=== PATIENT | female | born 1955 | race Hispanic/Latino ===

== ENCOUNTER 2022-10-26 08:23 | Emergency (ER) | payer MEDICARE, OTHER ==
[2022-10-26] MEDS ORDERED: fentaNYL 50 mcg/mL 1 mL Vial ONE (08:49)
[2022-10-26 08:57] LABS: #Eosinphils 0.3 10x3/uL (0.0-0.5); #Monocytes 0.9 10x3/uL (0.0-1.1); #Neutrophils 6.5 10x3/uL (1.5-8.4); %Basophils 0.4 % (0.0-2.0); %Eosinophils 3.4 % (0.0-6.0); %Lymphocytes 15.6 % (18.0-47.0); %Monocytes 10.1 % (0.0-10.0); %Neutrophils 70.4 % (40.0-75.0); Hematocrit 28.1 % (34.9-44.5); Hemoglobin 9.4 g/dL (12.0-15.5); Mean Corpuscular HGB CONC 33.5 g/dL (32.0-36.0); Mean Corpuscular Hemoglobin 31.1 pg (27.0-33.0); Mean Platelet Volume 9.4 fl (7.4-10.4); Platelet Count 231 10x3/uL (150-450); RBC Distribution Width 13.9 % (11.5-14.5); Red Blood Cell (RBC) Count 3.02 10x6/uL (3.90-5.03); White Blood Cell (WBC) Count 9.2 10x3/uL (3.5-10.5)
[2022-10-26 09:07] LABS: D-Dimer Test 0.91 mg/L FEU (0.19-0.50); PTT 27.4 sec (22.0-33.0); Prothrombin Time 10.7 sec (9.5-12.1)
[2022-10-26 09:10] LABS: ALT (SGPT) 45 U/L (8-55); AST (SGOT) 68 U/L (5-34); Albumin 3.5 g/dL (3.4-4.8); Alkaline Phosphatase 105 U/L (40-110); Anion Gap 14 mmol/L (10-20); BUN (Urea Nitrogen) 19 mg/dL (9.8-20.1); Bilirubin, Total 0.3 mg/dL (0.2-1.2); Calc. Creatinine Clearance 0 mL/min (70-130); Calcium 8.5 mg/dL (7.8-10.44); Carbon Dioxide 20 mmol/L (23-31); Chloride 108 mmol/L (98-107); Estimated GFR 64; Globulin 2.7 g/dL (2.4-3.5); Glucose 104 mg/dL (80-115); Magnesium 2.1 mg/dL (1.6-2.6); Potassium 3.8 mmol/L (3.5-5.1); Protein, Total 6.2 g/dL (5.8-8.1); Sodium 138 mmol/L (136-145)
[2022-10-26 09:15] LABS: Troponin I Less than 0.010 ng/mL (< 0.028)
[2022-10-26 11:32] LABS: Troponin I Less than 0.010 ng/mL (< 0.028)
[2022-10-26] MEDS ORDERED: Iopamidol 370 76% 100 ML VIAL ONE (14:16)
== END 2022-10-26 12:08 | disposition home or self-care (01) ==
LOC: CSHERS 08:23
DX: R07.89 Other chest pain (principal); E11.22 Type 2 diabetes mellitus with diabetic chronic kidney disease; I13.0 Hypertensive heart and chronic kidney disease with heart failure and stage 1 through stage 4 chronic kidney disease, or unspecified chronic kidney disease; N18.9 Chronic kidney disease, unspecified; I25.10 Atherosclerotic heart disease of native coronary artery without angina pectoris; F17.210 Nicotine dependence, cigarettes, uncomplicated; Z79.899 Other long term (current) drug therapy; Z79.82 Long term (current) use of aspirin
CPT/HCPCS: 71045; 71275; 80053; 83735; 84484 ×2; 85025; 85379; 85610; 85730; 93005; 96374; 99285; J3010; Q9967

== ENCOUNTER → 2023-07-10 | Emergency (ER) | payer OTHER ==
[~2023-07-10] MED LIST: LevoFLOXacin D5W 500 mg (100 mL) BAG ONE
[2023-07-10 22:21] LABS: #Basophils 0.07 10x3/uL (0.0-0.2); #Eosinphils 0.95 10x3/uL (0.0-0.5); #Monocytes 0.79 10x3/uL (0.0-1.1); %Eosinophils 13.6 % (0.0-6.0); %Lymphocytes 33.6 % (18.0-47.0); %Monocytes 11.4 % (0.0-10.0); %Neutrophils 40.3 % (40.0-75.0); Hematocrit 28.3 % (34.9-44.5); Hemoglobin 9.6 g/dL (12.0-15.5); Mean Corpuscular HGB CONC 33.9 g/dL (32.0-36.0); Mean Corpuscular Hemoglobin 31.8 pg (27.0-33.0); Mean Corpuscular Volume 93.7 fl (81.6-98.3); Mean Platelet Volume 9.3 fl (7.4-10.4); Platelet Count 302 10x3/uL (150-450); RBC Distribution Width 14.7 % (11.5-14.5); Red Blood Cell (RBC) Count 3.02 10x6/uL (3.90-5.03)
[2023-07-10 22:25] LABS: Bilirubin Neg (Negative); Blood, Urine 250 (Negative); Clarity Cloudy (Clear); Glucose, Urine (Dipstick) 250 mg/dL (Negative); Ketone, Urine Negative (Negative); Leukocyte 500 (Negative); Nitrite Negative (Negative); Protein, Urine (Dipstick) 100 mg/dl (Neg-Trace); Urobilinogen Normal mg/dL (Less than 2)
[2023-07-10 22:31] LABS: Bacteria/HPF 2+ HPF (None Seen); CAUTI Indications for Culture Dysuria,urgency,freq; Squamous Epithelial 0-3 HPF (0-3); Urine Culture Reflex Yes Yes; WBC/HPF Greater than 50 HPF (0-3)
[2023-07-10 22:33] LABS: ALT (SGPT) 32 U/L (8-55); AST (SGOT) 31 U/L (5-34); Albumin 2.7 g/dL (3.4-4.8); Alkaline Phosphatase 131 U/L (40-110); Anion Gap 13 mmol/L (10-20); BUN (Urea Nitrogen) 23 mg/dL (9.8-20.1); Bilirubin, Total 0.2 mg/dL (0.2-1.2); Calc. Creatinine Clearance 0 mL/min (70-130); Calcium 9.2 mg/dL (7.8-10.44); Carbon Dioxide 20 mmol/L (23-31); Chloride 111 mmol/L (98-107); Estimated GFR 67; Globulin 4.3 g/dL (2.4-3.5); Glucose 120 mg/dL (80-115); Potassium 4.3 mmol/L (3.5-5.1); Sodium 140 mmol/L (136-145)
== END ==
LOC: CSHERS 21:39
DX: N39.0 Urinary tract infection, site not specified (principal); I50.9 Heart failure, unspecified; E11.22 Type 2 diabetes mellitus with diabetic chronic kidney disease; I13.0 Hypertensive heart and chronic kidney disease with heart failure and stage 1 through stage 4 chronic kidney disease, or unspecified chronic kidney disease; N18.9 Chronic kidney disease, unspecified; I25.10 Atherosclerotic heart disease of native coronary artery without angina pectoris; F17.210 Nicotine dependence, cigarettes, uncomplicated
CPT/HCPCS: 51701; 80053; 81001; 85025; 87086; 99283; J1956

== ENCOUNTER 2023-12-20 08:32 | Observation (INO) | payer MEDICARE, OTHER ==
[2023-12-20 09:10] LABS: Bilirubin Neg (Negative); Blood, Urine 250 (Negative); Clarity Cloudy (Clear); Glucose, Urine (Dipstick) Normal (Negative); Ketone, Urine Negative (Negative); Leukocyte 500 (Negative); Nitrite Positive (Negative); Protein, Urine (Dipstick) 500 mg/dl (Neg-Trace); Urobilinogen Normal mg/dL (Less than 2)
[2023-12-20 09:31] LABS: Bacteria/HPF 4+ HPF (None Seen); CAUTI Indications for Culture Alt mental st,lethar; RBC/HPF Greater than 50 HPF (0-3); WBC/HPF Greater Than 50 HPF (0-3)
[2023-12-20 09:32] LABS: Urine Culture Reflex Yes Yes
[2023-12-20 09:47] LABS: #Basophils 0.06 10x3/uL (0.0-0.2); #Eosinophils 0.32 10x3/uL (0.0-0.5); #Monocytes 0.33 10x3/uL (0.0-1.1); #Neutrophils 5.73 10x3/uL (1.5-8.4); %Basophils 0.8 % (0.0-2.0); %Eosinophils 4.2 % (0.0-6.0); %Lymphocytes 15.9 % (18.0-47.0); %Monocytes 4.3 % (0.0-10.0); %Neutrophils 74.7 % (40.0-75.0); Hematocrit 37.1 % (34.9-44.5); Hemoglobin 12.4 g/dL (12.0-15.5); Mean Corpuscular HGB CONC 33.4 g/dL (32.0-36.0); Mean Corpuscular Hemoglobin 32.4 pg (27.0-33.0); Mean Corpuscular Volume 96.9 fL (81.6-98.3); Platelet Count 252 10x3/uL (150-450); Red Blood Cell (RBC) Count 3.83 10x6/uL (3.90-5.03); White Blood Cell (WBC) Count 7.7 10x3/uL (3.5-10.5)
[2023-12-20 10:04] LABS: Acetaminophen Less than 10 mcg/mL (Less than 10); Alcohol Less than 10.0 mg/dL (Less than 10); Lipase 58 U/L (8-78); Salicylate Less than 8.0 mg/dL (Less than 8.0)
[2023-12-20 10:05] LABS: ALT (SGPT) 74 U/L (8-55); AST (SGOT) 49 U/L (5-34); Albumin 3.2 g/dL (3.4-4.8); Alkaline Phosphatase 124 U/L (40-110); Anion Gap 13 mmol/L (10-20); BUN (Urea Nitrogen) 28 mg/dL (9.8-20.1); Bilirubin, Total 0.3 mg/dL (0.2-1.2); Calc. Creatinine Clearance 0 mL/min (70-130); Calcium 9.1 mg/dL (7.8-10.44); Carbon Dioxide 17 mmol/L (23-31); Chloride 115 mmol/L (98-107); Estimated GFR 65; Globulin 3.5 g/dL (2.4-3.5); Glucose 152 mg/dL (80-115); Potassium 5.2 mmol/L (3.5-5.1); Protein, Total 6.7 g/dL (5.8-8.1); Sodium 140 mmol/L (136-145)
[2023-12-20 10:14] LABS: Troponin I Less than 0.010 ng/mL (< 0.028)
[2023-12-20] MEDS ORDERED: LevoFLOXacin 750 mg/D5W 150 ml Premix Bag ONE (10:25)
[2023-12-20] MEDS ORDERED: Phenazopyridine HCl 95 MG TAB ONE (10:38)
[2023-12-20 10:58] LABS: Amphetamine Not Detected (NotDetected); Barbiturates Screen Not Detected (NotDetected); Benzodiazepine Screen Not Detected (NotDetected); Cocaine Metabolite Screen Not Detected (NotDetected); Methadone Not Detected (NotDetected); Methamphetamine Not Detected (NotDetected); Opiate Screen Detected (NotDetected); Oxycodone Screen Not Detected (NotDetected); Phencyclidine (PCP) Not Detected (NotDetected); THC/Cannabinoid Screen Not Detected (NotDetected); Tricyclic Screen Not Detected (NotDetected)
[2023-12-20] MEDS ORDERED: Ondansetron ODT 4 MG TAB PO PRN (11:14)
[2023-12-20] MEDS ORDERED: Insulin Lispro 100 UNIT/ML 10 ML VIAL SC PRN (11:33)
[2023-12-20] MEDS ORDERED: Dextrose 50% Abboject 50 ML SYRINGE SLOW IVP PRN (11:33)
[2023-12-20] MEDS ORDERED: Glucagon 1 MG/ML KIT IM PRN (11:33)
[2023-12-20] MEDS ORDERED: Dextrose 5% in Water 1,000 ML IV PRN (11:33)
[2023-12-20 12:08] VITALS: BMI 17.6
[2023-12-20] MEDS: Acetaminophen 325 MG TAB PO PRN (13:16)
[2023-12-20] MEDS: Phenazopyridine HCl 95 MG TAB PO SCH (13:16)
[2023-12-20] MEDS: cefTRIAXone\\ROCEPHIN 1 GM in Sodium Chloride 0.9% 100 ML IVPB SCH (13:20)
[2023-12-20] MEDS ORDERED: FLU (Fluad Triv) TS24-25 (65UP)/MF59C/PF 45 MCG/0.5 ML Syringe IM ONE (14:45)
[2023-12-20] MEDS: Morphine 2 MG/ML VIAL SLOW IVP PRN (14:55)
[2023-12-20] MEDS ORDERED: Loperamide HCl 2 MG CAP PO PRN (15:21)
[2023-12-20] MEDS ORDERED: hydrOXYzine 25 MG TAB PO PRN (15:21)
[2023-12-20] MEDS ORDERED: Diclofenac 1% 50 GM TOPICAL GEL TP PRN (15:21)
[2023-12-20] MEDS: Carvedilol 25 MG TAB PO SCH (21:46)
[2023-12-20] MEDS: Famotidine 20 MG TAB PO SCH (21:46)
[2023-12-20] MEDS: rOPINIRole HCl 0.25 MG TAB PO SCH (21:46)
[2023-12-20] MEDS: Losartan 50 MG TAB PO SCH (21:47)
[2023-12-20] MEDS: levETIRAcetam 500 MG TAB PO SCH (21:47)
[2023-12-20] MEDS: Amlodipine 5 MG TAB PO SCH (21:47)
[2023-12-20] MEDS: Baclofen 10 MG TAB PO SCH (21:48)
[2023-12-20] MEDS: Potassium Chloride 10 MEQ TAB PO SCH (21:48)
[2023-12-20] MEDS: DULoxetine 30 MG CAP PO SCH (21:48)
[2023-12-20] MEDS: Isosorbide Dinitrate 20 MG TAB PO SCH (21:49)
[2023-12-20] MEDS: Senokot S 8.6-50 MG TAB PO SCH (21:54)
[2023-12-21] MEDS: HYDROcodone/Acetaminophen 10/325 mg Tablet PO PRN (00:50)
[2023-12-21 03:26] LABS: #Basophils 0.06 10x3/uL (0.0-0.2); #Eosinophils 0.32 10x3/uL (0.0-0.5); #Monocytes 0.55 10x3/uL (0.0-1.1); #Neutrophils 3.54 10x3/uL (1.5-8.4); %Basophils 0.9 % (0.0-2.0); %Lymphocytes 29.6 % (18.0-47.0); %Monocytes 8.6 % (0.0-10.0); %Neutrophils 55.7 % (40.0-75.0); Hematocrit 31.1 % (34.9-44.5); Hemoglobin 10.4 g/dL (12.0-15.5); Mean Corpuscular HGB CONC 33.4 g/dL (32.0-36.0); Mean Corpuscular Hemoglobin 33.8 pg (27.0-33.0); Mean Platelet Volume 9.1 fL (7.4-10.4); Platelet Count 215 10x3/uL (150-450); RBC Distribution Width 13.2 % (11.5-14.5); Red Blood Cell (RBC) Count 3.08 10x6/uL (3.90-5.03); White Blood Cell (WBC) Count 6.4 10x3/uL (3.5-10.5)
[2023-12-21 04:01] LABS: Anion Gap 12 mmol/L (10-20); BUN (Urea Nitrogen) 24 mg/dL (9.8-20.1); Calc. Creatinine Clearance 42 mL/min (70-130); Calcium 8.6 mg/dL (7.8-10.44); Carbon Dioxide 15 mmol/L (23-31); Chloride 118 mmol/L (98-107); Estimated GFR 68; Glucose 92 mg/dL (80-115); Potassium 5.6 mmol/L (3.5-5.1); Sodium 139 mmol/L (136-145)
[2023-12-21] MEDS: Ferrous Sulfate 325 MG TAB PO SCH (09:08)
[2023-12-21] MEDS: Atorvastatin Calcium 40 MG TAB PO SCH (09:09)
[2023-12-21] MEDS: Sodium Bicarbonate Tab 325 MG TAB PO SCH (09:09)
[2023-12-21] MEDS: Enoxaparin 40 MG (0.4 mL) SYRINGE SC SCH (09:10)
[2023-12-21] MEDS: Polyethylene Glycol 3350 17 GM Packet PO SCH (09:10)
[2023-12-21] MEDS: Sodium Chloride 0.9% 500 ML IV SCH (09:19)
[2023-12-21 14:47] VITALS: BMI 17.6
[2023-12-21 15:18] LABS: Anion Gap 11 mmol/L (10-20); BUN (Urea Nitrogen) 21 mg/dL (9.8-20.1); Calc. Creatinine Clearance 46 mL/min (70-130); Calcium 8.7 mg/dL (7.8-10.44); Carbon Dioxide 17 mmol/L (23-31); Chloride 117 mmol/L (98-107); Estimated GFR 76; Glucose 92 mg/dL (80-115); Potassium 4.7 mmol/L (3.5-5.1); Sodium 140 mmol/L (136-145)
[2023-12-21] MEDS: Famotidine 20 MG TAB PO SCH (21:40)
[2023-12-22 05:10] VITALS: TEMP 97.6
[2023-12-22 10:16] VITALS: BP 146/69
== END 2023-12-22 13:20 | disposition home or self-care (01) ==
LOC: CSHERS 08:32 → CSHTELE 11:40
PROVIDERS: ADMIT Internal Medicine; ATTEND Internal Medicine
DX: N39.0 Urinary tract infection, site not specified (principal); N12 Tubulo-interstitial nephritis, not specified as acute or chronic; I69.954 Hemiplegia and hemiparesis following unspecified cerebrovascular disease affecting left non-dominant side; I35.8 Other nonrheumatic aortic valve disorders; I13.0 Hypertensive heart and chronic kidney disease with heart failure and stage 1 through stage 4 chronic kidney disease, or unspecified chronic kidney disease; I50.9 Heart failure, unspecified; N18.30 Chronic kidney disease, stage 3 unspecified; E11.22 Type 2 diabetes mellitus with diabetic chronic kidney disease; E46 Unspecified protein-calorie malnutrition; E87.5 Hyperkalemia; F32.A Depression, unspecified; D63.1 Anemia in chronic kidney disease; J44.9 Chronic obstructive pulmonary disease, unspecified; G93.41 Metabolic encephalopathy; Z88.1 Allergy status to other antibiotic agents; Z88.0 Allergy status to penicillin; Z79.82 Long term (current) use of aspirin; Z79.2 Long term (current) use of antibiotics; Z79.1 Long term (current) use of non-steroidal anti-inflammatories (NSAID); Z79.899 Other long term (current) drug therapy; R13.10 Dysphagia, unspecified
CPT/HCPCS: 51701; 70450; 71045; 74176; 80048 ×2; 80306; 80307; 81001; 82140; 82962 ×3; 83036; 83605; 83690; 84484; 85025; 87040; 87086; 93005; 94760; 96365; 96372 ×2; 96375; 96376 ×2; 99285; G0378 ×4; J0696 ×2; J1650 ×2; J1956; J2272; J7030; 36415; 36416; 80053; 84443

== ENCOUNTER → 2024-01-08 | Emergency (ER) | payer MEDICARE, OTHER ==
[~2024-01-08] MED LIST changes: +HYDROcodone/Acetaminophen 5/325 mg Tablet ONE; -LevoFLOXacin D5W 500 mg (100 mL) BAG ONE
== END ==
LOC: CSHERS 11:26
DX: M66.9 Spontaneous rupture of unspecified tendon (principal); R60.9 Edema, unspecified; I13.0 Hypertensive heart and chronic kidney disease with heart failure and stage 1 through stage 4 chronic kidney disease, or unspecified chronic kidney disease; I50.9 Heart failure, unspecified; N18.30 Chronic kidney disease, stage 3 unspecified; E11.22 Type 2 diabetes mellitus with diabetic chronic kidney disease; F17.210 Nicotine dependence, cigarettes, uncomplicated; Z55.0 Illiteracy and low-level literacy